=== PATIENT | female | born 1955 | race Two or more races ===

== ENCOUNTER 2020-01-15 12:21 | Emergency (ER) | payer MEDICARE, MEDICAID ==
[~2020-01-15] VITALS: Ht 147.3 cm; Wt 66.2 kg
[~2020-01-15 12:21] MED LIST: AMLO10TA8 PO; ASPI81TA45 PO; ATEN50TA41 PO; DICY20TA3 PO; METF500T PO; ONDA4TAB7 PO; SIMV20TA19 PO
[2020-01-15 12:36] VITALS: BP 127/59
--- NOTE | 2020-01-15 12:58 | NUR ---
Pt here for epigastric pain, pt reports she had pain s/p her colonoscopy with a polyp removal. Pt reprots today with her follow up her abd was tender so gi doctor sent to ed for ct. Pt denies any bleeding in her stool or from rectum. Reports her sleeping pills do help with the pain. Pt providing urine at this time.
[2020-01-15 13:25] LABS: MICROSCOPIC NOT IND
[2020-01-15] MEDS ORDERED: SODIUM CHLORIDE FLUSH 10ML SYR IVF ONE (13:30)
[2020-01-15 13:48] LABS: BASOPHILS # (AUTO) 0.04 x10^3/uL (0-0.1); BASOPHILS % (AUTO) 1 % (0-1); EOSINOPHILS # (AUTO) 0.14 x10^3/uL (0-0.4); EOSINOPHILS % (AUTO) 2 % (1-7); LYMPHOCYTES # (AUTO) 1.64 x10^3/uL (1-3.4); LYMPHOCYTES % (AUTO) 22 % (22-44); MD NO; MEAN CORPUSCULAR HEMOGLOBIN 30.3 pg (27.0-34.8); MEAN CORPUSCULAR HGB CONC 31.6 g/dL (32.4-35.8); MEAN CORPUSCULAR VOLUME 95.7 fL (80-100); MEAN PLATELET VOLUME 10.8 fL (7.4-10.4); MONOCYTES # (AUTO) 0.46 x10^3/uL (0.2-0.8); MONOCYTES % (AUTO) 6 % (2-9); NEUTROPHILS # (AUTO) 5.12 x10^3/uL (1.8-6.8); NEUTROPHILS % (AUTO) 69 % (42-75); PLATELET COUNT 245 x10^3/uL (130-400); RED BLOOD COUNT 4.56 x10^6/uL (3.82-5.3); RED CELL DISTRIBUTION WIDTH 15.4 % (9.6-15.2)
[2020-01-15 13:59] LABS: ALANINE AMINOTRANSFERASE 21 U/L (12-78); ALBUMIN 3.7 g/dL (3.4-5.0); ANION GAP 4 mmol/L (5-15); CALCIUM 8.8 mg/dL (8.5-10.1); CHLORIDE 108 mmol/L (98-107); CREATININE 1.04 mg/dL (0.55-1.02)
[2020-01-15 14:02] LABS: ALKALINE PHOSPHATASE 71 U/L (45-117); BILIRUBIN,TOTAL 0.6 mg/dL (0.2-1.0); TOTAL PROTEIN 7.5 g/dL (6.4-8.2)
--- NOTE | 2020-01-15 16:08 | NUR ---
WITH REASSESSMENT PATIENT DENIES PAIN/NAUSEA TESTING RESULTS REVIEWED-PLACED UP FOR RECHECK
[2020-01-15] MEDS ORDERED: OMNIPAQUE 350 MG/ML, 100ML BOTTLE ONE (16:21)
== END 2020-01-15 17:29 | disposition home or self-care (01) ==
LOC: ED 16:50
DX: K29.00 Acute gastritis without bleeding (principal); K85.00 Idiopathic acute pancreatitis without necrosis or infection; R00.1 Bradycardia, unspecified; I10 Essential (primary) hypertension; E11.9 Type 2 diabetes mellitus without complications
CPT/HCPCS: 36415; 71045; 74177; 76700; 80053; 81003; 83690; 85025; 93005; 99285; Q9967